=== PATIENT | female | born 1990 | race Caucasian/White ===

== ENCOUNTER → 2017-09-19 | Outpatient (CLI) | payer OTHER ==
[~2017-09-19] MED LIST: AMOCLA875 PO; AMOX875 PO; Amoxicillin500 MG PO; Bactrim Ds Tab1 EACH PO; CEPH500 PO; CYCL10 PO; Cipro500 MG PO; IBUP800 PO; MULVITMINE PO; Mobic15 MG PO; NAPR500 PO; Norco 5-325 Ta1 EACH PO; OXYACE5T PO; Peridex480 ML SS; Pyridium200 MG PO; Robaxin500 MG PO
[2017-09-20 09:26] LABS: Candida species (DNA Probe) Negative (NEGATIVE); G. vaginalis (DNA Probe) Negative (NEGATIVE); T. vaginalis (DNA Probe) Negative (NEGATIVE)
== END | disposition home or self-care (01) ==
LOC: LAB 11:10 → LAB SHORT 11:10
PROVIDERS: Obstetrics & Gynecology
DX: N76.0 Acute vaginitis (principal)
CPT/HCPCS: 87480; 87510; 87660

== ENCOUNTER 2018-01-11 22:30 | Emergency (ER) | payer OTHER ==
[~2018-01-11] VITALS: Ht 162.6 cm; Wt 61.2 kg
[~2018-01-11 22:30] MED LIST changes: -Bactrim Ds Tab1 EACH PO; -Cipro500 MG PO
== END 2018-01-12 01:05 | disposition home or self-care (01) ==
LOC: ER 22:30
DX: S00.432A Contusion of left ear, initial encounter (principal); S60.212A Contusion of left wrist, initial encounter; W01.198A Fall on same level from slipping, tripping and stumbling with subsequent striking against other object, initial encounter; F17.210 Nicotine dependence, cigarettes, uncomplicated
CPT/HCPCS: 70450; 72125; 73130; 99284

== ENCOUNTER 2018-01-28 18:57 | Emergency (ER) | payer OTHER ==
[~2018-01-28] VITALS: Ht 162.6 cm; Wt 59.0 kg
[2018-01-28] MEDS ORDERED: Bactrim Ds Tab1 EACH PO (20:45)
[2018-01-28] MEDS ORDERED: CEPH500 PO (21:01)
== END 2018-01-28 21:05 | disposition home or self-care (01) ==
LOC: ER 18:57
DX: L03.114 Cellulitis of left upper limb (principal); F17.210 Nicotine dependence, cigarettes, uncomplicated
CPT/HCPCS: 73110; 73130; 99283

== ENCOUNTER 2018-02-25 13:52 | Emergency (ER) | payer OTHER ==
[~2018-02-25] VITALS: Ht 162.6 cm; Wt 54.4 kg
[~2018-02-25 13:52] MED LIST changes: +Bactrim Ds Tab1 EACH PO
[2018-02-25 14:35] LABS: Alanine Aminotransfer (ALT/SGP 27 U/L (12-78); Albumin/Globulin Ratio 1.1 (0.8-1.8); Alk Phos 72 U/L (50-136); Anion Gap 8 mmol/L (6-16); Aspartate Aminotrans (AST/SGOT 22 U/L (12-37); Bilirubin, Total 0.9 mg/dL (0.1-1.0); Blood Urea Nitrogen 16 mg/dL (8-24); Bun/Creatinine Ratio 21.5 (12.0-20.0); CO2, Blood 24 mmol/L (21-32); Calcium, Blood 9.2 mg/dL (8.5-10.1); Chloride, Blood 109 mmol/L (98-108); Creatinine, Blood 0.74 mg/dL (0.40-1.00); Globulin, Blood 3.5 g/dL (2.2-4.0); Glomerular Filtration Rate >60 (60-); Glucose, Blood 83 mg/dL (70-99); Potassium, Blood 3.9 mmol/L (3.5-5.5); Sodium, Blood 141 mmol/L (136-145); Total Protein, Blood 7.5 g/dL (6.4-8.2)
[2018-02-25 14:40] LABS: BASOPHILS ABSOLUTE AUTO 0.04 K/mm3 (0.00-0.23); BASOPHILS PERCENT AUTO 1 % (0-2); EOSINOPHILS ABSOLUTE AUTO 0.08 K/mm3 (0.00-0.68); EOSINOPHILS PERCENT AUTO 1 % (0-6); Hematocrit 40.8 % (33.0-51.0); Hemoglobin 13.1 g/dL (11.5-16.0); IMMATURE GRAN ABSOLUTE AUTO 0.01 K/mm3 (0.00-0.10); IMMATURE GRAN PERCENT AUTO 0 % (0-1); LYMPHOCYTES PERCENT AUTO 27 % (21-46); MONOCYTES ABSOLUTE AUTO 0.54 K/mm3 (0.16-1.47); MONOCYTES PERCENT AUTO 7 % (4-13); Mean Corpuscular HGB 28.2 pg (26.0-34.0); Mean Corpuscular HGB Conc 32.1 g/dL (31.5-36.5); Mean Corpuscular Volume 88 fL (80-100); NEUTROPHILS ABSOLUTE AUTO 5.44 K/mm3 (1.96-9.15); NEUTROPHILS PERCENT AUTO 65 % (41-73); RDW Coefficient Variation 13.6 % (11.7-14.2); RDW Standard Deviation 43.8 fL (35.1-46.3); Red Blood Cell Count 4.64 M/mm3 (3.80-5.20); White Blood Cell Count 8.31 K/mm3 (4.00-11.30)
[2018-02-25 15:08] LABS: Mean Platelet Volume 11.4 fL (9.1-12.4); Platelet Count 160 K/mm3 (150-400)
[2018-02-25 15:28] LABS: Source, Urine Clean Catch
[2018-02-25 15:43] LABS: Bilirubin, Urine Neg (Neg); Blood, Urine 5+ (Neg); Glucose Qualitative, Urine Neg (Neg); Ketones, Urine 2+ (Neg); Leukocyte Esterase, Urine 2+ (Neg); Nitrite, Urine Neg (Neg); Protein, Urine 2+ (Neg); Specific Gravity, Urine 1.025 (1.003-1.022); Urobilinogen, Urine 1+ (Normal)
[2018-02-25 16:26] LABS: Color, Urine Yellow (P-Yellow)
[2018-02-25 16:27] LABS: Appearance, Urine Turbid (Clear)
[2018-02-25 16:30] LABS: Bacteria Many /hpf; Squamous Epithelial Cells Many /hpf (Few)
[2018-02-25 16:31] LABS: Mucus Light (0-Heavy)
[2018-02-25] MEDS ORDERED: Cipro500 MG PO (17:56)
== END 2018-02-25 18:32 | disposition home or self-care (01) ==
LOC: ER 13:52
PROVIDERS: Emergency Medicine
DX: K59.00 Constipation, unspecified (principal); N39.0 Urinary tract infection, site not specified; F17.210 Nicotine dependence, cigarettes, uncomplicated
CPT/HCPCS: 36415; 74177; 80053; 81001; 81025; 83690; 85025; 87086; 99284; Q9967

== ENCOUNTER 2019-08-13 10:38 | Emergency (ER) | payer SELFPAY ==
[~2019-08-13] VITALS: Ht 162.6 cm; Wt 49.9 kg
[~2019-08-13 10:38] MED LIST changes: +Cipro500 MG PO
== END 2019-08-13 11:19 ==
LOC: ER 10:38
DX: S40.272A Other superficial bite of left shoulder, initial encounter (principal); W54.0XXA Bitten by dog, initial encounter; Z88.0 Allergy status to penicillin; Z88.5 Allergy status to narcotic agent; F17.200 Nicotine dependence, unspecified, uncomplicated
CPT/HCPCS: 90471; 90714; 99283-25

== ENCOUNTER → 2021-07-20 | Outpatient (CLI) | payer OTHER ==
[2021-07-22 03:08] LABS: CHLAMYDIA TRACHOMATIS, NAA Negative (Negative)
== END | disposition home or self-care (01) ==
LOC: LAB SHORT 16:58 → LAB 16:58
PROVIDERS: Physician Assistant
DX: A63.0 Anogenital (venereal) warts (principal); N77.1 Vaginitis, vulvitis and vulvovaginitis in diseases classified elsewhere
CPT/HCPCS: 87491; 87591

== ENCOUNTER 2022-04-20 13:28 | Emergency (ER) | payer OTHER ==
[~2022-04-20] VITALS: Ht 162.6 cm; Wt 65.8 kg
== END 2022-04-20 15:01 | disposition home or self-care (01) ==
LOC: ER 13:28
DX: S90.852A Superficial foreign body, left foot, initial encounter (principal); S90.851A Superficial foreign body, right foot, initial encounter; F17.200 Nicotine dependence, unspecified, uncomplicated; X58.XXXA Exposure to other specified factors, initial encounter; Z88.5 Allergy status to narcotic agent
CPT/HCPCS: 99283